=== PATIENT | female | born 1995 | race Caucasian/White ===

== ENCOUNTER 2019-02-03 17:33 | Emergency (ER) | payer SELFPAY ==
[~2019-02-03] VITALS: Wt 56.3 kg
[~2019-02-03 17:33] MED LIST: ACET325T33 PO; NITR-58 PO
[2019-02-03 17:37] VITALS: BP 124/79; PULSE 120; RESP 18; Wt 56.3 kg
[2019-02-03] MEDS ORDERED: KETOROLAC 30 MG INJ IM STA (18:00)
[2019-02-03] MEDS ORDERED: ACETAMINOPHEN 325 MG TAB PO ONE (18:00)
[2019-02-03] MEDS ORDERED: ONDANSETRON (ODT) 4 MG TAB ODT STA (18:00)
[2019-02-03] MEDS ORDERED: D-ME473S2 PO (18:27)
[2019-02-03] MEDS ORDERED: ACET500C5 PO (18:27)
[2019-02-03] MEDS ORDERED: IBUP-1561 PO (18:27)
--- NOTE | 2019-02-03 18:29 | ERD ---
ER Documentation Chief Complaint Chief Complaint BODY ACHES, FEVER,RUNNY NOSE,COUGH, SORE THROAT HPI 23-year-old female presents with a 2-day history of body aches, cough, sore throat. She denies vomiting, abdominal pain, diarrhea, urinary complaints, neck stiffness, rashes. ROS All systems reviewed and are negative except as per history of present illness. Medications Home Meds Active Scripts Dextromethorphan Hb-Promethazine Hcl* (Promethazine DM* Syrup) 473 Ml Syrup, 5 ML PO Q6 PRN for COUGH for 5 Days, ML Prov:ABDELRAHMAN AMES MD 02/03/19 Ibuprofen* (Motrin*) 400 Mg Tab, 400 MG PO Q6, #15 TAB Prov:ABDELRAHMAN AMES MD 02/03/19 Acetaminophen* (Tylophen*) 500 Mg Capsule, 1 CAP PO Q6H PRN for PAIN AND OR ELEVATED TEMP, #15 CAP Prov:ABDELRAHMAN AMES MD 02/03/19 Acetaminophen* (Tylenol*) 325 Mg Tablet, 2 TAB PO Q8 PRN for PAIN AND OR ELEVATED TEMP, #20 TAB Prov:DORIE YATES PA-C 05/31/16 Nitrofurantoin Monohyd Macrocr* (Macrobid*) 100 Mg Capsr, 100 MG PO BID for 7 Days, CAP Prov:DORIE YATES PA-C 05/31/16 PMhx/Soc Medical and Surgical Hx: pt denies Medical Hx, pt denies Surgical Hx Hx Alcohol Use: No Hx Substance Use: No Hx Tobacco Use: No Smoking Status: Never smoker FmHx Family History: No diabetes, No coronary disease, No other Physical Exam Vitals Vital Signs Date Temp Pulse Resp B/P (MAP) Pulse Ox O2 O2 Flow FiO2 Time Delivery Rate 02/03/19 104.3 120 18 124/79 99 17:37 (94) Physical Exam Const: No acute distress Head: Atraumatic Eyes: Normal Conjunctiva ENT: Normal External Ears, Nose and Mouth. TMs and oropharynx normal. Neck: Full range of motion. No meningismus. Resp: Clear to auscultation bilaterally. Dry cough without rales, wheezing or retractions. Cardio: Regular rate and rhythm, no murmurs Abd: Soft, non tender, non distended. Normal bowel sounds Skin: No petechiae or rashes Back: No midline or flank tenderness Ext: No cyanosis, or edema Neur: Awake and alert Psych: Normal Mood and Affect Results 24 hrs Laboratory Tests Test 02/03/19 18:17 POC Beta HCG, Qualitative NEGATIVE Current Medications Medications Dose Sig/Bernard Start Time Status Last (Trade) Ordered Route PRN Stop Time Admin Dose Reason Admin Ketorolac 30 mg ONCE STAT 02/03/19 DC 02/03/19 Tromethamine IM 18:00 02/03/19 18:24 (Toradol) 18:02 650 mg ONCE ONCE 02/03/19 DC 02/03/19 Acetaminophen PO 18:00 02/03/19 18:24 (Tylenol 18:02 Tab) Ondansetron 8 mg ONCE STAT 02/03/19 DC 02/03/19 HCl (Zofran ODT 18:00 02/03/19 18:24 Odt) 18:02 Procedures/MDM 23-year-old female presents with a 2-day history of fever, body aches, sore throat suggestive of an acute viral URI or possibly influenza. She has no evidence of hypoxemia, respiratory stress, signs of pneumonia, abdominal pain, additional concerning signs or symptoms. She will treated with fever control, promethazine DM, primary care follow-up and return precautions. The patient was stable with no new complaints during the ER course. Clinically, there is no current evidence to suggest meningitis, sepsis, acute abdomen, pneumonia, stroke, acute coronary syndrome, pulmonary embolism, aortic dissection or any other emergent condition appearing to require further evaluation or hospitalization. Patient counseled regarding my diagnostic impression and care plan. Prior to discharge all questions answered. Pt agrees with treatment plan and understands strict return precautions. Pt is instructed to follow up with primary care provider within 24-48 hours. Precautionary instructions provided including instructions to return to the ER if not improving or for any worsening or changing symptoms or concerns. Departure Diagnosis: Primary Impression: Upper respiratory infection URI type: unspecified URI Qualified Codes: J06.9 - Acute upper respiratory infection, unspecified Additional Impression: Influenza-like symptoms Condition: Stable Patient Instructions: Febrile Illness, Uncertain Cause (Adult), Influenza (Adult) Referrals: NO PRIMARY,CARE PHYSICIAN (PCP) Additional Instructions: Probablamente un virus que dura 2-4 mars. cheque otro vez en el proximo katharine para mas simptomas- vomito, dolor, isauro, problemas con respirando, o con mena doctor primario. ABDELRAHMAN AMES MD Feb 03, 2019 18:29
== END 2019-02-03 18:43 | disposition home or self-care (01) ==
LOC: FTE 17:33
DX: J06.9 Acute upper respiratory infection, unspecified (principal)
CPT/HCPCS: 81025; 96372; 99284; J1885